=== PATIENT | female | born 1985 ===

== ENCOUNTER 2023-05-08 07:28 | Inpatient (IN) | payer OTHER ==
[2023-05-08] MEDS: ELECTROLYTE-148 SOLN 1,000 ML IV SCH ×2 (09:10→13:45)
[2023-05-08] MEDS ORDERED: AMPICILLIN SODIUM 2 GM VIAL ONE (09:15)
[2023-05-08] MEDS: AMPICILLIN - 2 GM in SODIUM CHLORIDE 100 ML IVPB ONE (09:15)
[2023-05-08 09:25] VITALS: BMI 36.4
[2023-05-08 09:43] LABS: INR 1.02 (0.83-1.09); PROTHROMBIN TIME (PATIENT) 11.8 SEC (9.7-13.0)
[2023-05-08 09:47] LABS: ACTIVATED PTT 23.9 SECONDS (25.2-36.5)
[2023-05-08 09:49] LABS: BASO % 0.3 % (0-2.0); EOS % 0.9 % (0-4.5); HEMOGLOBIN 12.7 GM/dL (10.7-15.3); LYMPH % 14.9 % (8-40); MCH 30.6 pg (25.7-33.7); MCHC 35.3 g/dl (32.0-36.0); MEAN CELL VOLUME 86.7 fl (80-96); MONO % 4.6 % (3.8-10.2); NEUT % 79.3 % (42.8-82.8); PLATELET COUNT 250 10^3/uL (134-434); RBC 4.15 M/mm3 (3.60-5.2); RDW 14.3 % (11.6-15.6); WHITE BLOOD COUNT 9.4 K/mm3 (4.0-10.0)
[2023-05-08] MEDS ORDERED: OXYTOCIN 30 UNITS in 0.9% NS 30 UNIT/500 ML INFUS.BAG IVPB ONE (11:00)
[2023-05-08] MEDS: OXYTOCIN 30 UNITS in 0.9% NS 30 UNIT/500 ML INFUS.BAG IVPB SCH (11:05)
[2023-05-08 11:07] LABS: POTASSIUM 3.9 mmol/L (3.5-5.1)
[2023-05-08 11:08] LABS: CALCIUM 8.3 mg/dL (8.5-10.1)
[2023-05-08 11:12] LABS: CREATININE 0.5 mg/dL (0.55-1.3)
[2023-05-08] MEDS ORDERED: AMPICILLIN SODIUM 1 GM VIAL ONE (11:55)
[2023-05-08 12:04] LABS: HIV INTERPRETATION NEGATIVE (NEGATIVE)
[2023-05-08] MEDS ORDERED: FENTANYL/BUPIVACAINE/NS/PF - PCEA - 50 ML DISP.SYRIN EP ONE (12:24)
[2023-05-08] MEDS: AMPICILLIN - 1 GM in SODIUM CHLORIDE 100 ML IVPB SCH (12:25)
[2023-05-08] MEDS: FENTANYL/BUPIVACAINE/NS/PF - PCEA - 50 ML DISP.SYRIN EP SCH (12:50)
[2023-05-08] MEDS ORDERED: NALOXONE HCL 0.4 MG/ML VIAL IVPUSH PRN (13:57)
[2023-05-08] MEDS ORDERED: OXYTOCIN 20 UNITS in 0.9% NS 20 UNIT/1,000 ML INFUS.BAG IV ONE (15:06)
[2023-05-08] MEDS ORDERED: LIDOCAINE HCL 1% PRESERVATIVE FREE - 30ML VIAL ONE (15:07)
[2023-05-08] MEDS: OXYTOCIN 20 UNITS in 0.9% NS 20 UNIT/1,000 ML INFUS.BAG IV SCH (15:18)
[2023-05-08] MEDS ORDERED: BISACODYL 10 MG SUPP.RECT RC PRN (15:39)
[2023-05-08] MEDS ORDERED: WITCH HAZEL 50% (TUCKS) 40 PAD/JAR PAD TP PRN (15:39)
[2023-05-08] MEDS ORDERED: BENZOCAINE 28 GM HEMORRHOIDAL OINTMENT TP PRN (15:39)
[2023-05-08] MEDS ORDERED: METHYLERGONOVINE MALEATE 0.2 MG/1 ML AMP IM PRN (15:39)
[2023-05-08] MEDS ORDERED: BENZOCAINE 20% 57 GM BOTTLE TP PRN (15:39)
[2023-05-08] MEDS ORDERED: oxyCODONE HCL 5 MG TABLET PO PRN (15:39)
[2023-05-08] MEDS ORDERED: ACETAMINOPHEN 325 MG TABLET (FP) ONE (17:09)
[2023-05-08] MEDS: ACETAMINOPHEN 325 MG TABLET (FP) PO PRN (17:12)
[2023-05-08] MEDS: IBUPROFEN 600 MG TABLET (FP) PO PRN (23:00)
[2023-05-09 08:12] LABS: BASO % 0.3 % (0-2.0); EOS % 0.8 % (0-4.5); HEMATOCRIT 37.2 % (32.4-45.2); HEMOGLOBIN 12.5 GM/dL (10.7-15.3); LYMPH % 10.9 % (8-40); MCH 29.6 pg (25.7-33.7); MCHC 33.5 g/dl (32.0-36.0); MEAN CELL VOLUME 88.6 fl (80-96); MEAN PLT VOLUME 6.9 fl (7.5-11.1); MONO % 4.6 % (3.8-10.2); NEUT % 83.4 % (42.8-82.8); PLATELET COUNT 240 10^3/uL (134-434); RBC 4.21 M/mm3 (3.60-5.2); RDW 14.1 % (11.6-15.6); WHITE BLOOD COUNT 12.8 K/mm3 (4.0-10.0)
[2023-05-09] MEDS: FERROUS SO4 325 MG TABLET (FP) PO SCH (08:19)
[2023-05-09] MEDS: PRENATAL VITAMINS W/ FOLIC ACID TABLET (FP) PO SCH (09:37)
[2023-05-09] MEDS: FLU VACCINE (FLULAVAL) PF 60 MCG/0.5 ML SYRINGE 2023-2024 IM ONE (15:55)
[2023-05-09] MEDS: DIPHTH,PERTUSS(ACELL),TET 0.5 ML DISP.SYRIN IM ONE (15:57)
[2023-05-09] MEDS: SENNOSIDES/DOCUSATE COMBO (SENNA PLUS) TABLET (UD) PO PRN (21:17)
[2023-05-10 11:27] VITALS: BP 121/82; PULSE 77; RESP 17; TEMP 97.4
== END 2023-05-10 13:55 | disposition home or self-care (01) | DRG 560 ==
LOC: JDEL 07:28 → JLDR 08:54 → J3W 17:33
PROVIDERS: ADMIT Obstetrics & Gynecology; ATTEND Obstetrics & Gynecology
PROC: 10E0XZZ Delivery of Products of Conception, External Approach (ICD-10-PCS; principal; 2023-05-08)
PROC: 0HQ9XZZ Repair Perineum Skin, External Approach (ICD-10-PCS; 2023-05-08)
DX: O70.0 First degree perineal laceration during delivery (principal); O24.424 Gestational diabetes mellitus in childbirth, insulin controlled; Z3A.38 38 weeks gestation of pregnancy; Z37.0 Single live birth
CPT/HCPCS: 36415; 59025; 80048; 82962; 85025; 85610; 85730; 86780; 86850; 86900; 86901; 87389; 90686; 90715; G0008